=== PATIENT | female | born 1965 | race African-American/Black ===

== ENCOUNTER → 2019-02-07 | Outpatient (CLI) | payer OTHER ==
[~2019-02-07] MED LIST: ADIPEX-P37.5 MG PO; AIRBORNE EFFER1 EACH PO; ASPIR 8181 MG PO; BACTRIM DS TAB1 EACH PO; BENADRYL25 MG PO; BIOTIN800 MCG PO; CALCIUM 500 +1 EAC5 PO; COD LIVER OIL1 EAC4 PO; FISH OIL 1,001000 M2 PO; FLONASE 0.05%50 MCG NASAL; GARLIC OIL1 EACH PO; IBUPROFEN 800800 M1 PO; NAPROSYN500 MG PO; PREDNISONE 20 M20 MG PO; TYLENOL325 MG PO; UNICOMPLEX M TA1 TA1 PO; VITAMIN B-1100 M1 PO; VITAMIN E400 UNI2 PO; WELLBUTRIN XL150 MG PO; XANAX 0.5 MG0.5 MG PO; XANAX1 MG PO; ZINC30 MG PO
== END ==
LOC: CAT 09:18
DX: Z13.6 Encounter for screening for cardiovascular disorders (principal); E78.00 Pure hypercholesterolemia, unspecified; Z82.49 Family history of ischemic heart disease and other diseases of the circulatory system